=== PATIENT | female | born 1985 | race African-American/Black ===

== ENCOUNTER 2016-09-06 19:46 | Emergency (ER) | payer OTHER ==
[2016-09-06] MEDS ORDERED: ONDANSETRON 4 MG TAB.RAPDIS PO ONE (21:18)
[2016-09-06] MEDS ORDERED: NORMAL SALINE 1000 ML 1,000 ML IV ONE (21:20)
--- NOTE | 2016-09-06 21:24 | ER Document Report ---
ED Medical Screen (RME) - General Chief Complaint: Nausea/Vomiting/Diarrhea Stated Complaint: VOMITING,NAUSEA,DIARRHEA Mode of Arrival: Ambulatory Information source: Patient Notes: 30 y/o F presents to ED c/o n/v/d since this afternoon. Reports associated headache and generalized body aches. States has had cough for the last 2 weeks her symptoms did not start until today. Denies fever. I have greeted and performed a rapid initial assessment of this patient. A comprehensive ED assessment and evaluation of the patient, analysis of test results and completion of the medical decision making process will be conducted by additional ED providers. TRAVEL OUTSIDE OF THE [place] IN LAST 30 DAYS: No - Related Data Allergies/Adverse Reactions: iodine [Iodine] Allergy (Verified 09/06/16 21:19) nickel [Nickel] Allergy (Verified 09/06/16 21:19) peanut [Peanut] Allergy (Verified 09/06/16 21:19) Penicillins Allergy (Verified 09/06/16 21:19) Shellfish * [Shellfish] Allergy (Verified 09/06/16 21:19) silver nitrate [Silver Nitrate] Allergy (Verified 09/06/16 21:19) "All Cillins" Allergy (Uncoded 09/06/16 21:20) Past Medical History - Social History Chew tobacco use (# tins/day): No Frequency of alcohol use: None Drug Abuse: None Pulmonary Medical History: Reports: Hx Asthma Renal/ Medical History: Denies: Hx Peritoneal Dialysis Psychiatric Medical History: Reports: Hx Depression, Hx Post Traumatic Stress Disorder - Immunizations Hx Diphtheria, Pertussis, Tetanus Vaccination: Yes - utd Physical Exam - Vital signs Vitals: Temp Pulse Resp BP Pulse Ox 98.0 F 111 H 24 H 129/85 H 100 09/06/16 21:11 09/06/16 21:11 09/06/16 21:11 09/06/16 21:11 09/06/16 21:11 - General General appearance: Alert In distress: None - Respiratory Respiratory status: No respiratory distress Breath sounds: Nonproductive cough. No: Rhonchi, Wheezing Course - Vital Signs Vital signs: Temp Pulse Resp BP Pulse Ox 98.0 F 107 H 24 H 129/85 H 100 09/06/16 21:16 09/06/16 21:16 09/06/16 21:16 09/06/16 21:16 09/06/16 21:16
[2016-09-07 00:07] LABS: ABSOLUTE LYMPHOCYTES (AUTO) 0.8 10^3/uL (0.5-4.7); ABSOLUTE MONOCYTES (AUTO) 0.6 10^3/uL (0.1-1.4); ABSOLUTE NEUT (AUTO) 7.9 10^3/uL (1.7-8.2); BASOPHILS % (AUTO) 0.4 % (0-2); EOSINOPHILS % (AUTO) 0.5 % (0-6); HEMATOCRIT 41.1 % (36.0-47.0); HEMOGLOBIN 14.1 g/dL (12.0-15.5); HGB HCT DIFFERENCE 1.2; MEAN CORPUSCULAR HEMOGLOBIN 29.5 pg (27.0-33.4); MEAN CORPUSCULAR HGB CONC 34.3 g/dL (32.0-36.0); MEAN CORPUSCULAR VOLUME 86 fl (80-97); RED BLOOD COUNT 4.78 10^6/uL (3.72-5.28); RED CELL DISTRIBUTION WIDTH 12.7 % (11.5-14.0); SEGMENTED NEUTROPHILS % (AUTO) 84.1 % (42-78); WHITE BLOOD COUNT 9.4 10^3/uL (4.0-10.5)
[2016-09-07 00:21] LABS: ALANINE AMINOTRANSFERASE 88 U/L (9-52); ALBUMIN 4.5 g/dL (3.5-5.0); ALKALINE PHOSPHATASE 65 U/L (38-126); ANION GAP 10 (5-19); ASPARTATE AMINO TRANSFERASE 47 U/L (14-36); BILIRUBIN,TOTAL 0.6 mg/dL (0.2-1.3); BLOOD UREA NITROGEN 10 mg/dL (7-20); CALCIUM 9.9 mg/dL (8.4-10.2); CARBON DIOXIDE 28 mmol/L (22-30); CHLORIDE 102 mmol/L (98-107); CREATININE RESULT 0.89 mg/dL (0.52-1.25); GLUCOSE 90 mg/dL (75-110); LIPASE 56.2 U/L (23-300); POTASSIUM 4.7 mmol/L (3.6-5.0); SODIUM 139.9 mmol/L (137-145); TOTAL PROTEIN 7.5 g/dL (6.3-8.2)
[2016-09-07 00:27] LABS: APPEARANCE,URINE SLIGHTLY-CLOUDY; BILIRUBIN,URINE NEGATIVE (NEGATIVE); GLUCOSE, URINE NEGATIVE (NEGATIVE); KETONES,URINE TRACE mg/dL (NEGATIVE); LEUKOCYTE ESTERASE,URINE NEGATIVE (NEGATIVE); NITRITE,URINE NEGATIVE (NEGATIVE); PROTEIN,URINE 30 mg/dL (NEGATIVE); URINE SPECIFIC GRAVITY 1.027; UROBILINOGEN,URINE NEGATIVE mg/dL (<2.0)
[2016-09-07 00:44] VITALS: BP 111/91
[2016-09-07] MEDS ORDERED: METOCLOPRAMIDE HCL INJ/PF 10 MG/2 ML SDV IV ONE (01:05)
[2016-09-07] MEDS ORDERED: ONDANSETRON ODT 4 MG TAB (6 TAB/DSPK) PO PRN (01:05)
--- NOTE | 2016-09-07 01:06 | ER Document Report ---
ED GI/ - General Chief Complaint: Nausea/Vomiting/Diarrhea Stated Complaint: VOMITING,NAUSEA,DIARRHEA Time seen by provider: 01:05 Mode of Arrival: Ambulatory Information source: Patient TRAVEL OUTSIDE OF THE [place] IN LAST 30 DAYS: No - HPI Patient complains to provider of: Diarrhea, Vomiting Onset: This afternoon Timing/Duration: Gradual Quality of pain: Achy, Cramping Severity at maximum: Moderate Severity in ED: Moderate Pain Level: 3 Location: Epigastric Associated symptoms: Diarrhea, Nausea, Vomiting Exacerbated by: Denies Relieved by: Denies Similar symptoms previously: No Recently seen / treated by doctor: No Notes: 09/07/16 05:39 Patient is a 30-year-old female presenting to the emergency room complaining of nausea, vomiting and diarrhea that started this afternoon around 4 PM, she reports crampy abdominal pain mainly in the epigastric region, multiple sick contacts at work recently, she denies a fever, no dysuria, hematuria, no blood in vomit or stools, no vaginal discharge or irregular bleeding - Related Data Allergies/Adverse Reactions: iodine [Iodine] Allergy (Verified 09/06/16 21:19) nickel [Nickel] Allergy (Verified 09/06/16 21:19) peanut [Peanut] Allergy (Verified 09/06/16 21:19) Penicillins Allergy (Verified 09/06/16 21:19) Shellfish * [Shellfish] Allergy (Verified 09/06/16 21:19) silver nitrate [Silver Nitrate] Allergy (Verified 09/06/16 21:19) "All Cillins" Allergy (Uncoded 09/06/16 21:20) Past Medical History - General Information source: Patient - Social History Smoking Status: Never Smoker Chew tobacco use (# tins/day): No Frequency of alcohol use: None Drug Abuse: None Family History: Reviewed & Not Pertinent Patient has suicidal ideation: No Patient has homicidal ideation: No Pulmonary Medical History: Reports: Hx Asthma Renal/ Medical History: Denies: Hx Peritoneal Dialysis Psychiatric Medical History: Reports: Hx Depression, Hx Post Traumatic Stress Disorder Surgical Hx: Negative - Immunizations Hx Diphtheria, Pertussis, Tetanus Vaccination: Yes - utd Review of Systems - Review of Systems Constitutional: No symptoms reported EENT: No symptoms reported Cardiovascular: No symptoms reported Respiratory: No symptoms reported Gastrointestinal: See HPI Genitourinary: No symptoms reported Female Genitourinary: No symptoms reported Musculoskeletal: No symptoms reported Skin: No symptoms reported Hematologic/Lymphatic: No symptoms reported Neurological/Psychological: No symptoms reported -: Yes All other systems reviewed and negative Physical Exam - Vital signs Vitals: Temp Pulse Resp BP Pulse Ox 98.0 F 111 H 24 H 129/85 H 100 09/06/16 21:11 09/06/16 21:11 09/06/16 21:11 09/06/16 21:11 09/06/16 21:11 Interpretation: Normal, Tachycardic - General General appearance: Appears well, Alert - HEENT Head: Normocephalic, Atraumatic Eyes: Normal Pupils: PERRL - Respiratory Respiratory status: No respiratory distress Chest status: Nontender Breath sounds: Normal Chest palpation: Normal - Cardiovascular Rhythm: Regular Heart sounds: Normal auscultation Murmur: No - Abdominal Inspection: Normal Distension: No distension Bowel sounds: Normal Tenderness: Tender - Epigastric tenderness, no tenderness in right upper quadrant Organomegaly: No organomegaly - Back Back: Normal, Nontender - Extremities General upper extremity: Normal inspection, Nontender, Normal color, Normal ROM , Normal temperature General lower extremity: Normal inspection, Nontender, Normal color, Normal ROM , Normal temperature, Normal weight bearing. No: Kaveh's sign - Neurological Neuro grossly intact: Yes Cognition: Normal Orientation: AAOx4 Seferino Coma Scale Eye Opening: Spontaneous [place] Coma Scale Verbal: Oriented Seferino Coma Scale Motor: Obeys Commands [place] Coma Scale Total: 15 Speech: Normal Motor strength normal: LUE, RUE, LLE, RLE Sensory: Normal - Psychological Associated symptoms: Normal affect, Normal mood - Skin Skin Temperature: Warm Skin Moisture: Dry Skin Color: Normal Course - Re-evaluation Re-evalutation: 09/07/16 05:40 Patient reports feeling much better after IV fluids and medication, she still has little bit and nausea and was provided with additional nausea medication, laboratory findings were discussed with patient at bedside which include a mildly elevated AST and ALT, she tells me that in the past she was told by a physician that if she didn't stop drinking alcohol she would need a liver transplant by the time she was 27, however she is unsure whether she has had an elevation in her liver enzymes in the past, her symptoms are consistent with viral gastroenteritis, therefore she was provided with Zofran dose pack and advised to follow-up with a primary care provider in the next 1-2 days or return to the emergency room if symptoms worsen, patient acknowledges understanding and agreement with this plan - Vital Signs Vital signs: Temp Pulse Resp BP Pulse Ox 99.5 F 102 H 20 111/91 H 98 09/07/16 00:43 09/07/16 00:43 09/07/16 00:43 09/07/16 00:43 09/07/16 00:43 - Laboratory Result Diagrams: 09/06/16 23:49 09/06/16 23:49 Laboratory results interpreted by me: 09/06/16 09/06/16 09/06/16 23:49 23:49 23:49 Seg Neutrophils % 84.1 H Lymphocytes % 9.0 L AST 47 H ALT 88 H Urine Protein 30 H Urine Ketones TRACE H Discharge - Discharge Clinical Impression: Nausea vomiting and diarrhea Condition: Stable Disposition: HOME, SELF-CARE Instructions: Antinausea Medication ([facility]), Intravenous (IV) Fluids ([facility]), Viral Syndrome ([facility]), Vomiting ([facility]), Reglan ([facility]), Diarrhea, Nonspecific ([facility]) Additional Instructions: Follow up with your primary care provider in one to 2 days. Return to the emergency room immediately if symptoms worsen or any additional concerns. Prescriptions: Ondansetron [Zofran Odt 4 mg Tablet] 1 - 2 tab PO Q4H #10 tab.[email or web address]
== END 2016-09-07 01:34 | disposition home or self-care (01) ==
LOC: ER 19:46
DX: R11.2 Nausea with vomiting, unspecified (principal); R19.7 Diarrhea, unspecified; R10.13 Epigastric pain; R74.8 Abnormal levels of other serum enzymes; R00.0 Tachycardia, unspecified; J45.909 Unspecified asthma, uncomplicated; Z88.3 Allergy status to other anti-infective agents; Z91.010 Allergy to peanuts; Z88.8 Allergy status to other drugs, medicaments and biological substances; Z91.013 Allergy to seafood; Z88.0 Allergy status to penicillin
CPT/HCPCS: 99284; 96361; 96374; 36415; 83690; 85025; 81025; 80053; 81001; 87804; S0119; J2765; J7030

== ENCOUNTER 2017-03-13 15:19 | Emergency (ER) | payer OTHER ==
[2017-03-13] MEDS ORDERED: NORMAL SALINE 1000 ML 1,000 ML IV ONE (16:16)
[2017-03-13] MEDS ORDERED: METOCLOPRAMIDE HCL INJ/PF 10 MG/2 ML SDV IV ONE (16:16)
--- NOTE | 2017-03-13 16:23 | ER Document Report ---
ED General - General Chief Complaint: Nausea/Vomiting Stated Complaint: VOMITTING Time Seen by Provider: 03/13/17 16:12 Mode of Arrival: Ambulatory Information source: Patient Notes: 31-year-old female presents with complaints of nausea vomiting 4 day duration. Patient was seen unable to days ago given nausea medication states symptoms have not improved with Zofran. Patient admits to cough sore throat body aches TRAVEL OUTSIDE OF THE [place] IN LAST 30 DAYS: No - HPI Onset: Last week Onset/Duration: Persistent Quality of pain: Achy Severity: Mild Pain Level: 1 Associated symptoms: Body/muscle aches, Nausea, Vomiting Exacerbated by: Denies Relieved by: Denies Similar symptoms previously: Yes Recently seen / treated by doctor: Yes - Related Data Allergies/Adverse Reactions: iodine [Iodine] Allergy (Verified 03/13/17 15:47) nickel [Nickel] Allergy (Verified 03/13/17 15:47) peanut [Peanut] Allergy (Verified 03/13/17 15:47) Penicillins Allergy (Verified 03/13/17 15:47) Shellfish * [Shellfish] Allergy (Verified 03/13/17 15:47) silver nitrate [Silver Nitrate] Allergy (Verified 03/13/17 15:47) "All Cillins" Allergy (Uncoded 03/13/17 15:47) Past Medical History - Social History Smoking Status: Never Smoker Cigarette use (# per day): No Chew tobacco use (# tins/day): No Smoking Education Provided: No Frequency of alcohol use: None Drug Abuse: None Family History: Reviewed & Not Pertinent Pulmonary Medical History: Reports: Hx Asthma Renal/ Medical History: Denies: Hx Peritoneal Dialysis Psychiatric Medical History: Reports: Hx Depression, Hx Post Traumatic Stress Disorder Past Surgical History: Reports: Hx Oral Surgery - dental - Immunizations Hx Diphtheria, Pertussis, Tetanus Vaccination: Yes - utd Review of Systems - Review of Systems Notes: REVIEW OF SYSTEMS: CONSTITUTIONAL : Denies fever, chills, or sweats. Denies recent illness. EENT: Admits to sore throat negative strep test CARDIOVASCULAR: Denies chest pain. Denies palpitations or racing or irregular heart beat. Denies ankle edema. RESPIRATORY: Denies cough, cold, or chest congestion. Denies shortness of breath, difficulty breathing, or wheezing. GASTROINTESTINAL: Admits to nausea vomiting GENITOURINARY: Denies difficulty urinating, painful urination, burning, frequency, blood in urine, or discharge. FEMALE GENITOURINARY: Denies vaginal bleeding, heavy or abnormal periods, irregular periods. Denies vaginal discharge or odor. MUSCULOSKELETAL: Denies back or neck pain or stiffness. Denies joint pain or swelling. SKIN: Denies rash, lesions or sores. HEMATOLOGIC : Denies easy bruising or bleeding. LYMPHATIC: Denies swollen, enlarged glands. NEUROLOGICAL: Denies confusion or altered mental status. Denies passing out or loss of consciousness. Denies dizziness or lightheadedness. Denies headache. Denies weakness or paralysis or loss of use of either side. Denies problems with gait or speech. Denies sensory loss, numbness, or tingling. Denies seizures. PSYCHIATRIC: Denies anxiety or stress. Denies depression, suicidal ideation, or homicidal ideation. ALL OTHER SYSTEMS REVIEWED AND NEGATIVE. PHYSICAL EXAMINATION: GENERAL: Well-appearing, well-nourished and in no acute distress. HEAD: Atraumatic, normocephalic. EYES: Pupils equal round and reactive to light, extraocular movements intact, conjunctiva are normal. ENT: Nares patent, oropharynx clear without exudates. Moist mucous membranes. NECK: Normal range of motion, supple without lymphadenopathy LUNGS: Breath sounds clear to auscultation bilaterally and equal. No wheezes rales or rhonchi. HEART: Regular rate and rhythm without murmurs ABDOMEN: Soft, nontender, nondistended abdomen. No guarding, no rebound. No masses appreciated. Female : deferred Musculoskeletal: Normal range of motion, no pitting or edema. No cyanosis. NEUROLOGICAL: Cranial nerves grossly intact. Normal speech, normal gait. Normal sensory, motor exams PSYCH: Normal mood, normal affect. SKIN: Warm, Dry, normal turgor, no rashes or lesions noted. Dictation was performed using [employer] voice recognition software Physical Exam - Vital signs Vitals: Temp Pulse Resp BP Pulse Ox 97.9 F 103 H 18 116/75 98 03/13/17 15:45 03/13/17 15:45 03/13/17 15:45 03/13/17 15:45 03/13/17 15:45 Course - Re-evaluation Re-evalutation: 03/13/17 16:22 Lab work imaging pending patient will be given IV fluids nausea control otherwise appears well 03/13/17 20:12 Patient notes significant improvement of her symptoms with nausea control. She was given a fluids and denies any other concerns at this time Elevated white count is consistent with patient's vomiting After performing a Medical Screening Examination, I estimate there is LOW risk for ACUTE APPENDICITIS, BOWEL OBSTRUCTION, ACUTE CHOLECYSTITIS, PERFORATED DIVERTICULITIS, INCARCERATED HERNIA, PANCREATITIS, PELVIC INFLAMMATORY DISEASE, PERFORATED ULCER, ECTOPIC , or TUBO-OVARIAN ABSCESS, thus I consider the discharge disposition reasonable. Also, there is no evidence or peritonitis , sepsis, or toxicity. I have reevaluated this patient multiple times and no significant life threatening changes are noted. The patient and I have discussed the diagnosis and risks, and we agree with discharging home with close follow-up with the understanding that symptoms and presentations can change. We also discussed returning to the Emergency Department immediately if new or worsening symptoms occur. We have discussed the symptoms which are most concerning (e.g., bloody stool, fever, changing or worsening pain, vomiting) that necessitate immediate return. 03/13/17 20:13 - Vital Signs Vital signs: Temp Pulse Resp BP Pulse Ox 98.0 F 80 18 117/68 98 03/13/17 18:40 03/13/17 18:40 03/13/17 18:40 03/13/17 18:40 03/13/17 18:40 - Laboratory Result Diagrams: 03/13/17 17:24 03/13/17 17:24 Laboratory results interpreted by me: 03/13/17 03/13/17 03/13/17 17:24 17:24 17:33 WBC 14.5 H Absolute Neutrophils 11.2 H Direct Bilirubin 0.5 H Total Protein 8.4 H Urine Protein 100 H Urine Ketones TRACE H Urine Ascorbic Acid 20 H Discharge - Discharge Clinical Impression: Nausea & vomiting Qualifiers: Vomiting type: unspecified Vomiting Intractability: non-intractable Qualified Code(s): R11.2 - Nausea with vomiting, unspecified Condition: Stable Disposition: HOME, SELF-CARE Instructions: Antinausea Medication ([facility]), Vomiting ([facility]) Additional Instructions: Please follow up with your pcp in 1-2 days for reevaluation or return immediately if there are any other concerns Prescriptions: Metoclopramide HCl [Reglan 10 mg Tablet] 1 - 2 tab PO Q6 #25 tablet Forms: Return to Work
--- NOTE | 2017-03-13 17:34 | RADIOLOGY REPORT (SQ) ---
EXAM DESCRIPTION: CHEST PA/LAT COMPLETED DATE/TIME: 03/13/2017 4:41 pm REASON FOR STUDY: cough, chest wall pain COMPARISON: 05/16/2015 EXAM PARAMETERS: NUMBER OF VIEWS: two views TECHNIQUE: Digital Frontal and Lateral radiographic views of the chest acquired. RADIATION DOSE: NA LIMITATIONS: none FINDINGS: LUNGS AND PLEURA: No opacities, masses or pneumothorax. No pleural effusion. MEDIASTINUM AND HILAR STRUCTURES: No masses or contour abnormalities. HEART AND VASCULAR STRUCTURES: Heart normal size. No evidence for failure. BONES: No acute findings. HARDWARE: None in the chest. OTHER: No other significant finding. IMPRESSION: NO SIGNIFICANT RADIOGRAPHIC FINDING IN THE CHEST. TECHNICAL DOCUMENTATION: JOB ID: [id number] [employer]- All Rights Reserved
[2017-03-13 17:57] LABS: ABSOLUTE BASOPHILS # (AUTO) 0.1 10^3/uL (0.0-0.2); ABSOLUTE EOSINOPHILS # (AUTO) 0.1 10^3/uL (0.0-0.6); ABSOLUTE LYMPHOCYTES (AUTO) 2.1 10^3/uL (0.5-4.7); ABSOLUTE MONOCYTES (AUTO) 0.9 10^3/uL (0.1-1.4); ABSOLUTE NEUT (AUTO) 11.2 10^3/uL (1.7-8.2); BASOPHILS % (AUTO) 0.5 % (0-2); HEMATOCRIT 44.3 % (36.0-47.0); HEMOGLOBIN 14.9 g/dL (12.0-15.5); HGB HCT DIFFERENCE 0.4; LYMPHOCYTES % (AUTO) 14.7 % (13-45); MEAN CORPUSCULAR HEMOGLOBIN 29.4 pg (27.0-33.4); MEAN CORPUSCULAR HGB CONC 33.5 g/dL (32.0-36.0); MEAN CORPUSCULAR VOLUME 88 fl (80-97); MONOCYTES % (AUTO) 6.5 % (3-13); RED BLOOD COUNT 5.06 10^6/uL (3.72-5.28); RED CELL DISTRIBUTION WIDTH 13.2 % (11.5-14.0); SEGMENTED NEUTROPHILS % (AUTO) 77.3 % (42-78); WHITE BLOOD COUNT 14.5 10^3/uL (4.0-10.5)
[2017-03-13 18:21] LABS: APPEARANCE,URINE SLIGHTLY-CLOUDY; BILIRUBIN,URINE NEGATIVE (NEGATIVE); GLUCOSE, URINE NEGATIVE (NEGATIVE); KETONES,URINE TRACE mg/dL (NEGATIVE); LEUKOCYTE ESTERASE,URINE NEGATIVE (NEGATIVE); NITRITE,URINE NEGATIVE (NEGATIVE); PROTEIN,URINE 100 mg/dL (NEGATIVE); URINE SPECIFIC GRAVITY 1.043; UROBILINOGEN,URINE NEGATIVE mg/dL (<2.0)
[2017-03-13 18:26] LABS: ALANINE AMINOTRANSFERASE 25 U/L (9-52); ALBUMIN 4.6 g/dL (3.5-5.0); ALKALINE PHOSPHATASE 56 U/L (38-126); ANION GAP 9 (5-19); ASPARTATE AMINO TRANSFERASE 32 U/L (14-36); BILIRUBIN,DIRECT 0.5 mg/dL (0.0-0.4); BILIRUBIN,TOTAL 0.7 mg/dL (0.2-1.3); BLOOD UREA NITROGEN 17 mg/dL (7-20); CALCIUM 9.6 mg/dL (8.4-10.2); CARBON DIOXIDE 29 mmol/L (22-30); CHLORIDE 102 mmol/L (98-107); CREATININE RESULT 1.04 mg/dL (0.52-1.25); GLUCOSE 88 mg/dL (75-110); LIPASE 59.2 U/L (23-300); SODIUM 140.4 mmol/L (137-145); TOTAL PROTEIN 8.4 g/dL (6.3-8.2)
[2017-03-13 18:43] VITALS: BP 117/68
== END 2017-03-13 18:42 | disposition home or self-care (01) ==
LOC: ER 15:19
DX: R11.2 Nausea with vomiting, unspecified (principal); M79.1 Myalgia; R05 Cough; J02.9 Acute pharyngitis, unspecified; Z79.899 Other long term (current) drug therapy
CPT/HCPCS: 99284; 96361; 96374; 36415; 83690; 85025; 81025; 80053; 81001; 71020; J2765; J7030

== ENCOUNTER 2017-05-13 08:05 | Day surgery (SDC) | payer OTHER ==
[2017-05-13 08:40] LABS: PROTHROMBIN TIME 12.4 SEC (11.4-15.4)
[2017-05-13 08:41] LABS: PARTIAL THROMBOPLASTIN TIME 27.5 SEC (23.5-35.8)
[2017-05-13 11:23] LABS: APPEARANCE ALL TUBES CLEAR
[2017-05-13 11:24] LABS: RBC DILUENT USED NONE USED; RBC DILUTION FACTOR 1; RBC SIDE 1 0; RBC SIDE 2 0; TOTAL RBC SQUARES COUNTED 225; WHITE BLOOD CELL,CSF 0 /uL (0-5)
[2017-05-13 11:29] LABS: GLUCOSE,CSF 51 mg/dL (40-70)
--- NOTE | 2017-05-13 13:09 | RADIOLOGY REPORT (SQ) ---
EXAM DESCRIPTION: LUMBAR PUNCTURE; FLUORO/NEEDLE PLACEMENT/SPINE COMPLETED DATE/TIME: 05/13/2017 10:58 am REASON FOR STUDY: UNSPECIFIED PAPILLEDEMA H47.10 UNSPECIFIED PAPILLEDEMA COMPARISON: None. FLUOROSCOPY TIME: 10 seconds 1 digital radiographic image saved to PACS. TECHNIQUE: Fluoroscopic guided lumbar puncture. LIMITATIONS: None. PROCEDURE: After written consent and assessment were obtained, the patient was brought into the fluo roscopy room and placed prone on the table. The patient's lower back was prepped in a sterile fashio n and an entry site was selected under live fluoroscopic guidance. The entry site was anesthetized wi th 4 mL of 1% lidocaine. A 22 gauge spinal needle was advanced through the skin and into the thecal s ac at the right paracentral L2-3 level. After approximately 20 ml was drained, the needle was remove d and a sterile bandage was placed of the site. Specimens were sent to the lab for testing. A fluor oscopic spot image was saved to PACS confirming level access. FINDINGS: Clear CSF The opening pressure was 39 cm of water. Large volume 20 mL tap was performed. Closing pressure 15 cm of water. IMPRESSION: Lumbar puncture under fluoroscopy. No immediate complication. COMMENT: Patient medication list reviewed: Yes- Quality ID# [id number]:Eligible professional attests to doc umenting in the medical record they obtained, updated, or reviewed the patient's current medications. . Quality ID 145: Final reports for procedures using fluoroscopy that document radiation exposure chalo robert, or exposure time and number of fluorographic images (if radiation exposure indices are not avail able) TECHNICAL DOCUMENTATION: JOB ID: [id number] [employer]- All Rights Reserved
[2017-05-13 15:40] VITALS: BP 110/60
[2017-05-14 16:39] LABS: ALBUMIN SERUM 4.1 g/dL (3.5-5.5); CSF IGG INDEX 0.7 (0.0-0.7); IGG SYNTHESIS RATE CSF -1.6 mg/day (-9.9 TO +3.3); IGG/ALBUMIN RATIO CSF 0.16 (0.00-0.25); IMMUNOGLOBULIN G CSF 1.3 mg/dL (0.0-8.6)
== END 2017-05-13 13:00 | disposition home or self-care (01) ==
LOC: RAD 08:05
PROVIDERS: ATTEND Specialist
PROC: 009U3ZX Drainage of Spinal Canal, Percutaneous Approach, Diagnostic (ICD-10-PCS; principal; 2017-05-13)
DX: H47.10 Unspecified papilledema (principal); R51 Headache; H53.8 Other visual disturbances; Z87.891 Personal history of nicotine dependence
CPT/HCPCS: 36415; 62270; 77003; 82784; 82945; 84157; 85610; 85730; 87070; 87205; 89050

== ENCOUNTER 2018-12-08 17:34 | Emergency (ER) | payer OTHER ==
[2018-12-08] MEDS ORDERED: METOCLOPRAMIDE HCL INJ/PF 10 MG/2 ML SDV IM ONE (17:49)
--- NOTE | 2018-12-08 17:51 | ER Document Report ---
ED Medical Screen (RME) - General Chief Complaint: Headache Stated Complaint: HEAD PAIN, VISION ISSUES Time Seen by Provider: 12/08/18 17:43 Mode of Arrival: Ambulatory Information source: Patient TRAVEL OUTSIDE OF THE [place] IN LAST 30 DAYS: No - HPI Patient complains to provider of: HEADACHE Notes: 12/08/18 17:50 Patient here with complaints of headache in the right side of her head with vision loss in the right eye. Is been gone for the last 3-1/2 weeks. Patient has a history of chronic headaches and has had papilledema in the past. No injury. No blood thinners. No unilateral numbness, tingling, weakness. No fever. Exam No distress, nontoxic-appearing. Lungs clear and equal throughout. Heart sounds normal. Nonfocal neuro exam. Plan CT head, Reglan An initial examination was made on the patient as part of the triage process, and it was determined a more comprehensive evaluation was necessary. Initial lab s were ordered and patient was transferred to another provider in the ED who assumed care and finished evaluation and plan. - Related Data Allergies/Adverse Reactions: iodine [Iodine] Allergy (Verified 12/08/18 17:35) naproxen Allergy (Verified 12/08/18 17:35) nickel [Nickel] Allergy (Verified 12/08/18 17:35) peanut [Peanut] Allergy (Verified 12/08/18 17:35) Penicillins Allergy (Verified 12/08/18 17:35) Shellfish * [Shellfish] Allergy (Verified 12/08/18 17:35) silver nitrate [Silver Nitrate] Allergy (Verified 12/08/18 17:35) "All Cillins" Allergy (Uncoded 12/08/18 17:35) Past Medical History - Past Medical History Cardiac Medical History: Denies: Hx Coronary Artery Disease, Hx Heart Attack, Hx Hypertension Pulmonary Medical History: Reports: Hx Asthma, Hx Pneumonia Denies: Hx Bronchitis, Hx COPD Neurological Medical History: Denies: Hx Cerebrovascular Accident, Hx Seizures Renal/ Medical History: Denies: Hx Peritoneal Dialysis Musculoskeltal Medical History: Denies Hx Arthritis Psychiatric Medical History: Reports: Hx Depression, Hx Post Traumatic Stress Disorder Past Surgical History: Reports: Hx Oral Surgery - dental, Hx Orthopedic Surgery - spinal - Immunizations Hx Diphtheria, Pertussis, Tetanus Vaccination: Yes History of Influenza Vaccine for 04/2017 - 09/2017 Season: No Physical Exam - Vital signs Vitals: Temp Pulse Resp BP Pulse Ox 98.3 F 99 18 149/109 H 98 12/08/18 17:36 12/08/18 17:36 12/08/18 17:36 12/08/18 17:36 12/08/18 17:36 Course - Vital Signs Vital signs: Temp Pulse Resp BP Pulse Ox 98.3 F 99 18 149/109 H 98 12/08/18 17:36 12/08/18 17:36 12/08/18 17:36 12/08/18 17:36 12/08/18 17:36
--- NOTE | 2018-12-08 18:47 | RADIOLOGY REPORT (SQ) ---
EXAM DESCRIPTION: CT HEAD WITHOUT COMPLETED DATE/TIME: 12/08/2018 6:27 pm REASON FOR STUDY: VISION LOSS, HEADACHE COMPARISON: None. TECHNIQUE: Axial images acquired through the brain without intravenous contrast. Images reviewed wi th bone, brain and subdural windows. Additional sagittal and coronal reconstructions were generated. Images stored on PACS. All CT scanners at this facility use dose modulation, iterative reconstruction, and/or weight based d osing when appropriate to reduce radiation dose to as low as reasonably achievable (ALARA). [facility]: Dose Right [facility]: CareDose [facility]: Dose Right [facility]: Teradose 4D [facility]: Smart Remotium RADIATION DOSE: CT Rad equipment meets quality standard of care and radiation dose reduction techniq ues were employed. CTDIvol: 53.2 mGy. DLP: 1150 mGy-cm. mGy. LIMITATIONS: None. FINDINGS: VENTRICLES: Normal size and contour. CEREBRUM: No masses. No hemorrhage. No midline shift. No evidence for acute infarction. Normal gra y/white matter differentiation. No areas of low density in the white matter. CEREBELLUM: No masses. No hemorrhage. No alteration of density. No evidence for acute infarction. EXTRAAXIAL SPACES: No fluid collections. No masses. ORBITS AND GLOBE: No intra- or extraconal masses. Normal contour of globe without masses. CALVARIUM: No fracture. PARANASAL SINUSES: No fluid or mucosal thickening. SOFT TISSUES: No mass or hematoma. OTHER: No other significant finding. IMPRESSION: NORMAL BRAIN CT WITHOUT CONTRAST. EVIDENCE OF ACUTE STROKE: NO. COMMENT: Quality ID # [id number]: Final reports with documentation of one or more dose reduction techniques (e.g., Automated exposure control, adjustment of the mA and/or kV according to patient size, use of iterative reconstruction technique) TECHNICAL DOCUMENTATION: JOB ID: [id number] [employer]- All Rights Reserved Reading location - IP/workstation name: [email or web address]
[2018-12-08] MEDS ORDERED: KETOROLAC TROMETHAMINE 60 MG/2 ML SDV IM ONE (19:14)
--- NOTE | 2018-12-08 19:21 | ER Document Report ---
ED General - General Chief Complaint: Headache Stated Complaint: HEAD PAIN, VISION ISSUES Time Seen by Provider: 12/08/18 17:43 Mode of Arrival: Ambulatory Information source: Patient, [facility] Records Notes: 33-year-old female with PCOS, chronic migraines, asthma, PTSD presents with complaint of headache that started 3-1/2 weeks prior to arrival. Headache is located in her upper back, back of her neck and migrates to her occiput. She describes it as aching, throbbing. Patient also states that she has had transient blurred vision for the past 3 and half weeks. Patient does have a history of migraines and has been seen by neurology, neuro-ophthalmology and is currently undergoing treatment with Botox injections every 12 weeks. Last injection was 11 weeks prior to arrival. Patient denies any fever, chills, nausea, vomiting, photophobia, weakness, tingling. Patient has had an extensive work-up for this and states that so far no one can give her the answers for why she has transient visual loss and chronic migraines. She is not on any chronic medications. In the last few months patient has undergone an MRI, lumbar puncture. TRAVEL OUTSIDE OF THE [place] IN LAST 30 DAYS: No - HPI Onset: Other Onset/Duration: Gradual, Persistent Quality of pain: Achy, Throbbing Severity: Moderate Pain Level: 2 Associated symptoms: Headache. denies: Body/muscle aches, Chest pain, Chills, Productive cough, Fever, Nausea, Vomiting, Shortness of breath, Weakness Exacerbated by: Denies Relieved by: Denies Similar symptoms previously: Yes Recently seen / treated by doctor: Yes - Related Data Allergies/Adverse Reactions: iodine [Iodine] Allergy (Verified 12/08/18 17:35) naproxen Allergy (Verified 12/08/18 17:35) nickel [Nickel] Allergy (Verified 12/08/18 17:35) peanut [Peanut] Allergy (Verified 12/08/18 17:35) Penicillins Allergy (Verified 12/08/18 17:35) Shellfish * [Shellfish] Allergy (Verified 12/08/18 17:35) silver nitrate [Silver Nitrate] Allergy (Verified 12/08/18 17:35) "All Cillins" Allergy (Uncoded 12/08/18 17:35) Past Medical History - General Information source: Patient - Social History Smoking Status: Never Smoker Frequency of alcohol use: None Drug Abuse: None Lives with: Family, Spouse/Significant other Family History: Reviewed & Not Pertinent Patient has suicidal ideation: No Patient has homicidal ideation: No - Past Medical History Cardiac Medical History: Denies: Hx Coronary Artery Disease, Hx Heart Attack, Hx Hypertension Pulmonary Medical History: Reports: Hx Asthma, Hx Pneumonia Denies: Hx Bronchitis, Hx COPD Neurological Medical History: Reports: Hx Migraine. Denies: Hx Cerebrovascular Accident, Hx Seizures Renal/ Medical History: Denies: Hx Peritoneal Dialysis Musculoskeletal Medical History: Denies Hx Arthritis Psychiatric Medical History: Reports: Hx Depression, Hx Post Traumatic Stress Disorder Past Surgical History: Reports: Hx Oral Surgery - dental, Hx Orthopedic Surgery - spinal - Immunizations Hx Diphtheria, Pertussis, Tetanus Vaccination: Yes Review of Systems - Review of Systems Constitutional: denies: Fever, Recent illness EENT: Blurred vision. denies: Double vision, Sinus pressure, Difficulty swallowing Cardiovascular: denies: Chest pain, Dyspnea Respiratory: denies: Short of breath Gastrointestinal: denies: Abdomen distended, Nausea, Vomiting Genitourinary: denies: Flank pain Female Genitourinary: No symptoms reported Musculoskeletal: Back pain Skin: denies: Rash Hematologic/Lymphatic: No symptoms reported Neurological/Psychological: Headaches. denies: Depression, Paralysis, Seizure, Lost consciousness, Speech impairment, Numbness -: Yes All other systems reviewed and negative Physical Exam - Vital signs Vitals: Temp Pulse Resp BP Pulse Ox 98.3 F 99 18 149/109 H 98 12/08/18 17:36 12/08/18 17:36 12/08/18 17:36 12/08/18 17:36 12/08/18 17:36 - Notes Notes: PHYSICAL EXAMINATION: GENERAL: Well-appearing, well-nourished and in no acute distress. HEAD: Atraumatic, normocephalic. EYES: Pupils equal round and reactive to light, extraocular movements intact, conjunctiva are normal. ENT: Nares patent, oropharynx clear without exudates. Moist mucous membranes. NECK: Normal range of motion, supple without lymphadenopathy LUNGS: Breath sounds clear to auscultation bilaterally and equal. No wheezes r ales or rhonchi. HEART: Regular rate and rhythm without murmurs ABDOMEN: Soft, nontender, nondistended abdomen. No guarding, no rebound. No masses appreciated. Female : deferred Musculoskeletal: Normal range of motion, no pitting or edema. No cyanosis. NEUROLOGICAL: Mental status; alert and oriented x3. Cranial nerves II through XII intact. Sensation intact to sharp/dull differentiation in all extremities. Motor; normal tone. No abnormal movements appreciated. No pronator drift. Strength tested and 5/5 in bilateral wrist flexion/extension, elbow flexion/extension, shoulder abduction, straight leg raise, knee flexion/extension, ankle dorsiflexion/plantar flexion. Patient ambulates with a steady gait. Coordination; no ataxia. Finger to nose and heel to chaney testing intact bilaterally. Reflexes; brachial radialis, biceps, and patellar reflexes within normal limits and symmetric bilaterally. Babinski with downgoing toes bilaterally. PSYCH: Normal mood, normal affect. SKIN: Warm, Dry, normal turgor, no rashes or lesions noted. Course - Re-evaluation Re-evalutation: 12/08/18 19:[address] 12/08/18 17:49 IMPRESSION: NORMAL BRAIN CT WITHOUT CONTRAST. EVIDENCE OF ACUTE STROKE: NO. Temp Pulse Resp BP Pulse Ox 98.3 F 99 18 149/109 H 98 12/08/18 17:36 12/08/18 17:36 12/08/18 17:36 12/08/18 17:36 12/08/18 17:36 12/08/18 19:25 33-year-old female with a history of chronic migraines, associated with transient visual loss presents with complaint of headache and blurred vision. Patient's headache has been ongoing for approximately 3-1/2 weeks. Vital signs show the patient to be hypertensive but afebrile and not hypoxic. Patient does not appear toxic or dehydrated. She is in no acute distress. Patient has a normal neurologic exam and can read a sign in the emergency department that is 8 feet away. Per the patient she has been seen by neurology, neuro-ophthalmology and is currently undergoing Botox injections for her headache. She states that she is due for her Botox injection this week. Patient has had a lumbar puncture and MRI within this year and states they were normal. She is been told by her neuro-biogeographer that they do not know what is causing her visual loss or headaches. Patient[place] [facility] for which she does have an upcoming appointment in [address] of the head was obtained and showed no acute process. Patient is requesting to eat. Patient advised to follow-up with her primary care physician as scheduled in 2 days. Patient was evaluated and treated as appropriate for the patient's presenting symptoms and complaint, with consideration of any critical or life threatening conditions that may be associated with their obtained history and exam as noted above. All results were discussed with patient. Patient provided the opportunity to ask questions, and express concerns. Patient was educated on treatments based on their presumed diagnosis as noted above. At this time we will discharge the patient with return precautions and follow-up recommendations. Verbal discharge instructions given a the bedside. Medication warnings reviewed. Patient is in agreement with this plan and has verbalized understanding of return precautions. After careful consideration I feel that that patient can be safely discharged from the emergency department, they were advised to followup with a primary care physician in 2-3 days. Dictation on this chart was performed using voice recognition software and may result in unintended grammatical, spelling, syntax or errors. - Vital Signs Vital signs: Temp Pulse Resp BP Pulse Ox 97.8 F 68 16 118/79 100 12/08/18 19:54 12/08/18 19:54 12/08/18 19:54 12/08/18 19:54 12/08/18 19:54 - Diagnostic Test Radiology reviewed: Image reviewed, Reports reviewed Discharge - Discharge Clinical Impression: Blurred vision, right eye Headache Qualifiers: Headache type: unspecified Headache chronicity pattern: chronic headache Intractability: not intractable Qualified Code(s): R51 - Headache Condition: Good Disposition: HOME, SELF-CARE Instructions: Headache ([facility]), Reglan ([facility]), Toradol Injection ([facility]) Additional Instructions: You have been seen in the Emergency Department (ED) for a headache. Please use Tylenol (acetaminophen) or Motrin (ibuprofen) as needed for symptoms, but only as written on the box. As we have discussed, please follow up with your primary care doctor as soon as possible regarding today's ED visit and your headache symptoms. Call your doctor or return to the ED if you have a worsening headache, sudden and severe headache, confusion, slurred speech, facial droop, weakness or numbne ss in any arm or leg, extreme fatigue, or other symptoms that concern you. Forms: Elevated Blood Pressure
[2018-12-08 19:55] VITALS: BP 118/79
== END 2018-12-08 20:50 | disposition home or self-care (01) ==
LOC: ER 17:34
DX: R51 Headache (principal); H53.8 Other visual disturbances; Z88.0 Allergy status to penicillin; Z91.010 Allergy to peanuts; Z91.013 Allergy to seafood
CPT/HCPCS: 99284; 96372; 70450; J1885; J2765